=== PATIENT | female | born 2005 | race African-American/Black ===

== ENCOUNTER 2024-04-10 14:52 | Emergency (ER) | payer OTHER ==
[~2024-04-10] VITALS: Ht 157.5 cm; Wt 53.3 kg
[2024-04-10] MEDS ORDERED: CEFUROXIME500 MG PO (16:38)
[2024-04-10] MEDS ORDERED: DOXYCYCLINE HY100 MG PO (16:38)
[2024-04-10] MEDS ORDERED: LIDOCAINE HCL 1% LOCAL INJ 20 ML VIAL ONE (16:53)
[2024-04-10] MEDS: CEFTRIAXONE 1 GM VIAL IM ONE (17:09)
[2024-04-10 17:13] VITALS: PULSE 80; RESP 13; TEMP 99.4; O2SAT 99
== END 2024-04-10 17:33 | disposition home or self-care (01) ==
LOC: FSED 15:38
DX: R10.30 Lower abdominal pain, unspecified (principal); N39.0 Urinary tract infection, site not specified; Z72.51 High risk heterosexual behavior; F17.290 Nicotine dependence, other tobacco product, uncomplicated
CPT/HCPCS: 81003; 81025; 96372; 99283; J0696; J2001